=== PATIENT | male | born 1950 | race Caucasian/White ===

== ENCOUNTER 2023-09-28 09:07 | Outpatient (CLI) | payer OTHER ==
[~2023-09-28] VITALS: Ht 177.8 cm; Wt 78.9 kg
[~2023-09-28 09:07] MED LIST: ALPR-623 PO; AMLO5TAB PO; HCTZ25T PO; HYDR1TAB PO; LEVO500T2 PO; LISI20TA28 PO; RES15C PO; TADA5TAB2 PO; VENL-191 PO; ZOF4T PO; [UNRECOGNIZED DRUG - CODE] PO
[2023-09-28] MEDS: albuterol 2.5 MG/3 ML nebule NEB PRN (09:37)
[2023-09-28 09:38] VITALS: PULSE 67; RESP 16; O2SAT 93
== END 2023-09-28 23:59 | disposition home or self-care (01) ==
LOC: RT 09:07
PROVIDERS: ATTEND Chiropractor
DX: R94.2 Abnormal results of pulmonary function studies (principal); J84.10 Pulmonary fibrosis, unspecified
CPT/HCPCS: 94060; 94760